=== PATIENT | male | born 1980 | race Caucasian/White ===

== ENCOUNTER 2022-06-30 09:25 | Emergency (ER) | payer BC, SELFPAY ==
[2022-06-30 09:35] VITALS: BP 109/16; PULSE 109; RESP 16; TEMP 36.9; O2SAT 98
--- NOTE | 2022-06-30 10:08 | ED.URI ---
HPI - URI/Sore Throat General Chief Complaint: Upper Respiratory Infection Stated Complaint: cough,congestion,headache Time Seen by Provider: 06/30/22 10:09 Source: patient and RN notes reviewed Mode of arrival: ambulatory Limitations: no limitations History of Present Illness HPI Narrative: 42-year-old male presented for complaint of sinus pressure/headache, nasal congestion, cough, and sore throat over the last 3 days. He has taken DayQuil and NyQuil for symptoms without significant change. He denies shortness breath, wheeze, vomiting, fevers or chills. Endorses his has been sick for about 2 weeks with similar symptoms. MD elicited complaint: cough Related Data Home Medications Medication Instructions Recorded Confirmed No Home Medications 06/30/22 06/30/22 Allergies Allergy/AdvReac Type Severity Reaction Status Date / Time No Known Allergies Allergy Verified 06/30/22 09:33 Review of Systems Review of Systems: CONSTITUTIONAL: Denies malaise, chills, sweats, fever EYES: Denies visual changes, redness, or discharge ENT: Reports rhinorrhea, congestion, sinus pain, sore throat CARDIOVASCULAR: Denies chest pain, palpitations, edema RESPIRATORY: Reports cough, post nasal drainage. Denies dyspnea GASTROINTESTINAL: Denies abdominal pain, nausea, vomiting, diarrhea SKIN: Denies rash or itching MUSCULOSKELETAL: Denies myalgia NEUROLOGIC: Reports headache PMFSH Past Medical History Medical History (Updated 06/30/22 @ 10:20 by Deanna Miramontes APRN) Non-recurrent unilateral inguinal hernia without obstruction or gangrene Family History Family History Father Asthma Mother Family history of malignant neoplasm of breast in first degree relative Other Family history of allergic disorder Family history of malignant neoplasm Social History Social History Smoking status: Never smoker Alcohol intake: never Exam Narrative: GENERAL: Mildly ill-appearing, nontoxic HEAD: Normocephalic EYES: PERRLA, conjunctivae clear ENT: Mucous membranes moist. TM [place] with dull light reflex bilaterally; no tragal tenderness. Oropharynx normal without lesions or exudate, no drooling, no hoarseness, no trismus, uvula midline. CHEST: Clear to auscultation, breath sounds equal. No wheezing, rhonchi, rales, or stridor. No respiratory distress, speaks in full sentences. HEART: Regular rate and rhythm. No murmur heard. SKIN: Warm, dry, no rash. NEURO: Alert and oriented x3. PSYCH: Normal mood and affect Course Course Emergency Course: Patient is aware of diagnosis, understands and agrees to treatment plan. Anticipatory guidance given. Patient agrees to follow-up as directed and is aware of reasons to seek care at the emergency department. Portions of this record may have been created with voice recognition software Level of Care: Express Care Visit Vital Signs Vital signs: Vital Signs Temperature 98.5 F 06/30/22 09:35 Pulse Rate 109 H 06/30/22 09:35 Respiratory Rate 16 06/30/22 09:35 Blood Pressure 109/16 L 06/30/22 09:35 Pulse Oximetry 98 06/30/22 09:35 Oxygen Delivery Room Air 06/30/22 09:35 Temperature 98.5 F 06/30/22 09:35 Pulse Rate 109 H 06/30/22 09:35 Respiratory Rate 16 06/30/22 09:35 Blood Pressure 109/16 L 06/30/22 09:35 Pulse Oximetry 98 06/30/22 09:35 Oxygen Delivery Room Air 06/30/22 09:35 reviewed MDM - URI/Sore Throat MDM Narrative Medical decision making narrative: Results of negative strep reviewed with patient. Discussed physical exam findings. Advised supportive measures and signs/symptoms to go to the ER. Pt is appropriate for outpt treatment and f/u. Differential Diagnosis Differential diagnosis: Likely upper respiratory infection, sinusitis and viral infection Lab Data Labs: Strep Screen
== END 2022-06-30 10:25 | disposition home or self-care (01) ==
PROVIDERS: Emergency Provider Nurse Practitioner Family
DX: J06.9 Acute upper respiratory infection, unspecified (principal)
CPT/HCPCS: 87081; 87880; 99213; G0463